=== PATIENT | male | born 1970 ===

== ENCOUNTER 2021-06-26 00:06 | Emergency (ER) | payer SELFPAY ==
[2021-06-26] MEDS ORDERED: Fluorescein Opthalmic Strip ONE (00:12)
[2021-06-26] MEDS ORDERED: Proparacaine 0.5% Opth 15 ML BOT ONE (00:12)
[2021-06-26] MEDS ORDERED: Nitrazine Tape 1 ROLL ONE ×2 (00:22→00:24)
[2021-06-26] MEDS ORDERED: Ondansetron PF 4 MG/2 ML Vial ONE (00:23)
[2021-06-26] MEDS ORDERED: Morphine 4 MG/ML VIAL ONE (00:23)
== END 2021-06-26 02:08 | disposition home or self-care (01) ==
LOC: ERS 00:06
DX: T20.40XA Corrosion of unspecified degree of head, face, and neck, unspecified site, initial encounter (principal); T26.92XA Corrosion of left eye and adnexa, part unspecified, initial encounter; T26.91XA Corrosion of right eye and adnexa, part unspecified, initial encounter; T22.40XA Corrosion of unspecified degree of shoulder and upper limb, except wrist and hand, unspecified site, initial encounter; X12.XXXA Contact with other hot fluids, initial encounter
CPT/HCPCS: 96374; 96375; J2270; J2405